=== PATIENT | male | born 1990 | race Caucasian/White ===

== ENCOUNTER 2018-06-02 23:36 | Emergency (ER) | payer SELFPAY ==
[~2018-06-02] VITALS: Ht 177.8 cm; Wt 65.8 kg
[2018-06-02 23:40] VITALS: BP 146/83
--- NOTE | 2018-06-02 23:57 | PHYS DOC ---
Past Medical History Past Medical History: No Pertinent History Past Surgical History: Other Additional Past Surgical Histo: HERNIA Alcohol Use: Sober Drug Use: Marijuana Adult General Chief Complaint Chief Complaint: CHEST PAIN HPI HPI Patient is a 28 year old male with history of smoking, bronchitis, who presents today complaining of a 10 out of 10 left-sided chest pain that has been going on for 1-1/2 months. Patient states he does not have any pain right now and the ED. Patient states the pain is worse when he coughs and takes deep breaths. Patient denies any pain radiating, denies anything specifically relieving the pain. He states he just wants to be checked out to make sure everything is okay. He states he has had similar chest pain when he had bronchitis. Review of Systems Review of Systems Constitutional: Denies fever or chills [] Eyes: Denies change in visual acuity, redness, or eye pain [] HENT: Denies nasal congestion or sore throat [] Respiratory: Denies cough or shortness of breath [] Cardiovascular: Reports chest pain GI: Denies abdominal pain, nausea, vomiting, bloody stools or diarrhea [] : Denies dysuria or hematuria [] Musculoskeletal: Denies back pain or joint pain [] Integument: Denies rash or skin lesions [] Neurologic: Denies headache, focal weakness or sensory changes [] All other systems were reviewed and found to be within normal limits, except as documented in this note. Current Medications Current Medications Current Medications Medications (Trade) Dose Ordered Sig/Temo Start Time Stop Time Status Last Admin Dose Admin Potassium Chloride (Klor-Con) 40 meq 1X ONCE 06/03/18 00:30 06/03/18 00:31 DC Allergies Allergies Allergies Coded Allergies Type Severity Reaction Last Updated Verified No Known Drug Allergies 04/05/14 No Physical Exam Physical Exam Constitutional: Well developed, well nourished, no acute distress, non-toxic appearance. [] HENT: Normocephalic, atraumatic, bilateral external ears normal, oropharynx moist, no oral exudates, nose normal. [] Eyes: PERRLA, EOMI, conjunctiva normal, no discharge. [] Neck: Normal range of motion, no tenderness, supple, no stridor. [] Cardiovascular:Heart rate regular rhythm, no murmur [] Lungs & Thorax: Bilateral breath sounds clear to auscultation [] Abdomen: Bowel sounds normal, soft, no tenderness, no masses, no pulsatile masses. [] Skin: Warm, dry, no erythema, no rash. [] Back: No tenderness, no CVA tenderness. [] Extremities: No tenderness, no cyanosis, no clubbing, ROM intact, no edema. [] Neurologic: Alert and oriented X 3, normal motor function, normal sensory function, no focal deficits noted. [] Psychologic: Affect normal, judgement normal, mood normal. [] Current Patient Data Vital Signs Vital Signs Date Time Temp Pulse Resp B/P (MAP) Pulse Ox O2 Delivery O2 Flow Rate FiO2 06/02/18 23:40 98.5 86 24 146/83 (104) 100 Room Air 98.5 Lab Values Laboratory Tests Test 06/03/18 00:02 06/03/18 00:05 POC Troponin I 0.00 ng/ml (<0.08) POC Hemoglobin 16.7 g/dL (14-18) POC Hematocrit 49 % (37-52) POC Sodium 142 mmol/L (135-145) POC Potassium 3.2 mmol/L (3.5-5.0) L POC Chloride 102 mmol/L (98-110) POC Total CO2 27 mmol/L (23-32) Anion Gap 17 mmol/L (6-14) H POC Blood Urea Nitrogen 11 mg/dL (8-26) POC Creatinine 0.9 mg/dL (0.5-1.4) Glucose Level 96 mg/dL (70-99) POC Ionized Calcium (Johanny) 1.16 mmol/L (1.13-1.32) Laboratory Tests 06/03/18 00:05 EKG EKG [address] Lee sinus rate them heart rate 96 no STEMI[] Radiology/Procedures Radiology/Procedures [] Course & Med Decision Making Course & Med Decision Making Pertinent Labs and Imaging studies reviewed. (See chart for details) This is a 28-year-old male patient presenting to the ED today complaining of chest pain when he coughs or takes a deep breath for the last 1-1/2 months. Patient states he does not have any pain on arrival to the ED. Patient has history of bronchitis and has had similar symptoms with his bronchitis. He is a smoker. He was encouraged to consider smoking cessation. EKG is negative for any acute findings, i-STAT troponin 0.00, chem 8 with potassium of 3.2, patient was given oral potassium replacement with advise to increase dietary potassium intake. He is in no distress. He was discharged with albuterol inhaler, prednisone. OTC cough medications recommended as needed. OTC pain medications also recommended. Provided a doctor's list as well as junior accountant for follow- up as an outpatient. Dragon Disclaimer Dragon Disclaimer This electronic medical record was generated, in whole or in part, using a voice recognition dictation system. Departure Departure Impression: Primary Impression: Acute bronchitis Additional Impression: Smoking addiction Disposition: HOME, SELF-CARE Condition: STABLE Referrals: NO PCP (PCP) FELIPE KELLEY MD follow up in 1 week Patient Instructions: Acute Bronchitis, Chest Pain (Nonspecific), [id number] , Smoking Cessation Additional Instructions: You were evaluated in the emergency room for acute bronchitis with chest pain. Please follow-up with the provided junior accountant as well as a primary care doctor from the list provided. Take [id number] medications as needed for pain. Use the prescribed medications as ordered. Come back to the ED at any point symptoms worsen. Consider smoking cessation. Scripts Prednisone (PREDNISONE) 50 Mg Tablet 1 TAB PO DAILY, #5 TAB Prov: ELLEN JOSÉ APRN 06/03/18 Albuterol Sulfate (VENTOLIN HFA INHALER) 18 Gm Hfa.aer.ad 2 PUFF INH Q4HRS for FOR ASTHMA, #1 INHALER 0 Refills Prov: ELLEN JOSÉ APRN 06/03/18 Problem Qualifiers Primary Impression: Acute bronchitis Bronchitis organism: unspecified organism Qualified Codes: J20.9 - Acute bronchitis, unspecified ELLEN JOSÉ APRN Jun 02, 2018 23:57
[2018-06-03 00:22] LABS: CREATININE ISTAT 0.9 mg/dL (0.5-1.4); HEMOGLOBIN ISTAT 16.7 g/dL (14-18); ION CA ISTAT 1.16 mmol/L (1.13-1.32); POTASSIUM ISTAT 3.2 mmol/L (3.5-5.0)
[2018-06-03] MEDS ORDERED: POTASSIUM CHLORIDE 20 MEQ TABLET.ER. PO ONE (00:30)
[2018-06-03] MEDS ORDERED: PRED50TA PO (00:48)
[2018-06-03] MEDS ORDERED: VENTOLIN HFA18 GM INH (00:48)
--- NOTE | 2018-06-03 01:29 | RAD ---
PA and lateral chest x-ray HISTORY: Chest pain and cough. FINDINGS: Heart size normal. Mediastinal silhouette is normal. Small calcified granulomas of the lungs. Pectus carinatum likely contributes to artificial density along the right medial lung base on the frontal view with no correlate on the lateral view. IMPRESSION: No acute process. 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 Electronically signed by: Scar Cheung MD (06/03/2018 1:24 AM) [facility]
--- NOTE | 2018-06-03 06:02 | EKG ---
[facility] [address] [place] [address] Test Date: 2018-06-02 Test Time: 23:45:52 Pat Name: KRYSTAL DIETRICH Department: Room: Gender: M [employer]: : 1990 Requested By: ELLEN JOSÉ Order Number: [id number] Reading MD: Measurements Intervals [place] Rate: 96 P: 99 AK: 138 QRS: 64 QRSD: 92 T: 61 QT: 346 QTc: 437 Interpretive Statements SINUS RHYTHM NORMAL ECG No previous ECG available for comparison
== END 2018-06-03 01:12 | disposition home or self-care (01) ==
LOC: ER 23:36
DX: J20.9 Acute bronchitis, unspecified (principal); Z87.891 Personal history of nicotine dependence
CPT/HCPCS: 36415; 71046; 80047; 84484; 85014; 85018; 93005; 99283

== ENCOUNTER 2021-08-13 21:23 | Emergency (ER) | payer SELFPAY ==
[~2021-08-13] VITALS: Ht 177.8 cm; Wt 63.6 kg
[~2021-08-13 21:23] MED LIST: PRED50TA PO; VENTOLIN HFA18 GM INH
[2021-08-14 00:04] VITALS: BP 148/106
[2021-08-14 00:23] LABS: BASO # 0.1 x10^3/uL (0.0-0.2); BASO % 1 % (0-3); EOS # 0.4 x10^3/uL (0.0-0.7); EOS % 4 % (0-3); HEMATOCRIT 44.5 % (39.0-53.0); HEMOGLOBIN 15.2 g/dL (13.0-17.5); LYMPH # 2.9 x10^3/uL (1.0-4.8); LYMPH % 28 % (24-48); MEAN CORPUSCULAR HEMOGLOBIN 29 pg (25-35); MEAN CORPUSCULAR HGB CONC 34 g/dL (31-37); MEAN CORPUSCULAR VOLUME 86 fL (79-100); MONO # 0.8 x10^3/uL (0.0-1.1); MONO % 8 % (0-9); NEUT # 5.9 x10^3/uL (1.8-7.7); NEUT % 58 % (31-73); PLATELET COUNT 267 x10^3/uL (140-400); RED BLOOD COUNT 5.15 x10^6/uL (4.30-5.70); RED CELL DISTRIBUTION WIDTH 14.4 % (11.5-14.5); WHITE BLOOD COUNT 10.2 x10^3/uL (4.0-11.0)
[2021-08-14 00:33] LABS: CALCIUM 9.3 mg/dL (8.5-10.1); CREATININE 0.8 mg/dL (0.7-1.3); GFR 111.3; POTASSIUM 3.8 mmol/L (3.5-5.1)
[2021-08-14 00:39] LABS: ALBUMIN 4.3 g/dL (3.4-5.0); TOTAL PROTEIN 8.4 g/dL (6.4-8.2)
[2021-08-14] MEDS ORDERED: CONTRAST GIVEN. MC PRN (00:45)
[2021-08-14] MEDS ORDERED: IOHEXOL 300 MG/ML 100ML VIAL. IV ONE (01:00)
--- NOTE | 2021-08-14 01:02 | PHYS DOC ---
Past Medical History Past Medical History: No Pertinent History Past Surgical History: No Surgical History Additional Past Surgical Histo: Childhood ingunal hernia repair Smoking Status: Current Every Day Smoker Alcohol Use: None Drug Use: Marijuana General Adult EDM: Chief Complaint: ABSCESS HPI: HPI: Patient is a 31 year old male who presents the ED today complaining of an abscess in the inside of his mouth specifically at the back of the tongue/gum on the left side, patient states it has been there for 4 months. Denies any fever, denies any difficulty swallowing. Patient is a smoker. Review of Systems: Review of Systems: Constitutional: Denies fever or chills. [] HENT: Reports an abscess on the left side of his tongue/gums Denies nasal congestion or sore throat. [] Respiratory: denies cough or shortness of breath. [] Cardiovascular: Denies chest pain or edema. [] GI: Denies abdominal pain, nausea, vomiting, bloody stools or diarrhea. [] : Denies dysuria. [] Musculoskeletal: Denies back pain or joint pain. [] Integument: Denies rash. [] Neurologic: Denies headache, focal weakness or sensory changes. [] Psychiatric: Denies depression or anxiety. [] Heart Score: C/O Chest Pain: N/A Risk Factors: Risk Factors: DM, Current or recent (<one month) smoker, HTN, HLP, family history of CAD, obesity. Risk Scores: Score 0 - 3: 2.5% MACE over next 6 weeks - Discharge Home Score 4 - 6: 20.3% MACE over next 6 weeks - Admit for Clinical Observation Score 7 - 10: 72.7% MACE over next 6 weeks - Early Invasive Strategies Current Medications: Current Medications Medications (Trade) Dose Ordered Sig/Temo Start Time Stop Time Status Last Admin Dose Admin Info (CONTRAST GIVEN -- Rx MONITORING) 1 each PRN DAILY PRN 08/14/21 00:45 08/16/21 00:44 Iohexol (Omnipaque 300 Mg/ml) 70 ml 1X ONCE 08/14/21 01:00 08/14/21 01:01 Allergies: Allergies: Allergies Coded Allergies Type Severity Reaction Last Updated Verified No Known Drug Allergies 04/05/14 No Physical Exam: PE: Constitutional: Well developed, well nourished, no acute distress, non-toxic appearance. [] HENT: Normocephalic, atraumatic, bilateral external ears normal, oropharynx moist, nose normal. [] Airway is open, no obvious abscess noted on the tongue, decayed teeth noted on the left lower gum, with some gum swelling on the left side. Subcutaneous swelling noted on the left lateral neck, no fluctuance Eyes: PERRLA, EOMI, conjunctiva normal, no discharge. [] Neck: Normal range of motion, no tenderness, supple, no stridor. [] Cardiovascular:Heart rate regular rhythm, no murmur [] Lungs & Thorax: Bilateral breath sounds clear to auscultation [] Abdomen: Bowel sounds normal, soft, no tenderness, no masses, no pulsatile m asses. [] Skin: Warm, dry, no erythema, no rash. [] Back: No tenderness, no CVA tenderness. [] Extremities: No tenderness, no cyanosis, no clubbing, ROM intact, no edema. [] Neurologic: Alert and oriented X 3, normal motor function, normal sensory function, no focal deficits noted. [] Psychologic: Affect normal, judgement normal, mood normal. [] Current Patient Data: Labs: Laboratory Tests Test 08/14/21 00:16 White Blood Count 10.2 x10^3/uL (4.0-11.0) Red Blood Count 5.15 x10^6/uL (4.30-5.70) Hemoglobin 15.2 g/dL (13.0-17.5) Hematocrit 44.5 % (39.0-53.0) Mean Corpuscular Volume 86 fL (79-100) Mean Corpuscular Hemoglobin 29 pg (25-35) Mean Corpuscular Hemoglobin Concent 34 g/dL (31-37) Red Cell Distribution Width 14.4 % (11.5-14.5) Platelet Count 267 x10^3/uL (140-400) Neutrophils (%) (Auto) 58 % (31-73) Lymphocytes (%) (Auto) 28 % (24-48) Monocytes (%) (Auto) 8 % (0-9) Eosinophils (%) (Auto) 4 % (0-3) H Basophils (%) (Auto) 1 % (0-3) Neutrophils # (Auto) 5.9 x10^3/uL (1.8-7.7) Lymphocytes # (Auto) 2.9 x10^3/uL (1.0-4.8) Monocytes # (Auto) 0.8 x10^3/uL (0.0-1.1) Eosinophils # (Auto) 0.4 x10^3/uL (0.0-0.7) Basophils # (Auto) 0.1 x10^3/uL (0.0-0.2) Sodium Level 140 mmol/L (136-145) Potassium Level 3.8 mmol/L (3.5-5.1) Chloride Level 103 mmol/L (98-107) Carbon Dioxide Level 28 mmol/L (21-32) Anion Gap 9 (6-14) Blood Urea Nitrogen 19 mg/dL (8-26) Creatinine 0.8 mg/dL (0.7-1.3) Estimated GFR (Cockcroft-Gault) 111.3 BUN/Creatinine Ratio 24 (6-20) H Glucose Level 97 mg/dL (70-99) Calcium Level 9.3 mg/dL (8.5-10.1) Total Bilirubin 1.0 mg/dL (0.2-1.0) Aspartate Amino Transferase (AST) 36 U/L (15-37) Alanine Aminotransferase (ALT) 95 U/L (16-63) H Alkaline Phosphatase 90 U/L (46-116) Total Protein 8.4 g/dL (6.4-8.2) H Albumin 4.3 g/dL (3.4-5.0) Albumin/Globulin Ratio 1.0 (1.0-1.7) Laboratory Tests 08/14/21 00:16 Laboratory Tests 08/14/21 00:16 Vital Signs: Vital Signs Date Time Temp Pulse Resp B/P (MAP) Pulse Ox O2 Delivery O2 Flow Rate FiO2 08/14/21 00:04 98.0 80 21 148/106 (120) 97 Room Air 98.0 EKG: EKG: [] Radiology/Procedures: Radiology/Procedures: []PROCEDURE: CT SOFT TISSUE NECK W/CONTRAST CLINICAL HISTORY: Reason: left side of throat swelling;OMNI 300,70ML / Spl. Instructions: / History: COMPARISON: None available. TECHNIQUE: Multidetector helical CT with axial 3 mm scans and coronal and sagittal reconstructed images was obtained from the skull base to the aortic arch after administration of IV contrast. PQRS compliance statement - One or more of the following individualized dose reduction techniques were utilized for this study: 1. Automated exposure control 2. Adjustment of the mA and/or kV according to patient size 3. Use of iterative reconstruction technique FINDINGS: Images through the skull base and cavernous sinuses are unremarkable. The orbits are unremarkable. The paranasal sinuses and mastoid air cells are unremarkable. The nasopharynx, oral pharynx and oral cavity including the floor of the mouth and tongue are unremarkable. The hypopharynx including the epiglottis, vallecula and pyriform sinuses are unremarkable. The larynx, vocal cords and subglottic airways are unremarkable/patent. The parotid and submandibular glands are unremarkable. The thyroid gland is unremarkable. The carotid arteries and jugular veins are patent. There is no evidence of pathologically enlarged lymph nodes. The osseous structures are unremarkable. Mild subcutaneous swelling overlying the left neck. Biapical emphysematous changes are seen. IMPRESSION: Mild subcutaneous swelling overlying the left neck. No loculated fluid collection at the neck. Electronically signed by: Edis Esteves MD (08/14/2021 1:09 AM) [facility] DICTATED and SIGNED BY: EDIS ESTEVES MD DATE: 08/14/21 0104 Course & Med Decision Making: Course & Med Decision Making Pertinent Labs and Imaging studies reviewed. (See chart for details) This a 31-year-old male patient presenting to the ED today complaining of an abscess on the left side of his gums/tongue for 4 months. CBC CMP with no acute findings, CT neck soft tissue mild subcutaneous swelling overlying the left neck. No loculated fluid collection at the neck. Discharge to home. Provided ENT to follow-up for this. Dragon Disclaimer: Raj Disclaimer: This electronic medical record was generated, in whole or in part, using a voice recognition dictation system. Departure Departure Impression: Primary Impression: Smoking addiction Additional Impression: Swollen neck Disposition: 01 HOME / SELF CARE / HOMELESS Condition: STABLE Referrals: NO PCP (PCP) SADIA PENN MD follow up in 2 weeks a week ago with Patient Instructions: Smoking Cessation, Tips For Success Additional Instructions: You were evaluated in the emergency room and noted to have some swelling on the left side of the neck. We provided you an ENT, to follow-up for this ELLEN JOSÉ APRN Aug 14, 2021 01:02
--- NOTE | 2021-08-14 01:11 | RAD ---
CLINICAL HISTORY: Reason: left side of throat swelling;OMNI 300,70ML / Spl. Instructions: / History: COMPARISON: None available. TECHNIQUE: Multidetector helical CT with axial 3 mm scans and coronal and sagittal reconstructed imag es was obtained from the skull base to the aortic arch after administration of IV contrast. PQRS compliance statement - One or more of the following individualized dose reduction techniques wer e utilized for this study: 1. Automated exposure control 2. Adjustment of the mA and/or kV according to patient size 3. Use of iterative reconstruction technique FINDINGS: Images through the skull base and cavernous sinuses are unremarkable. The orbits are unremarkable. Th e paranasal sinuses and mastoid air cells are unremarkable. The nasopharynx, oral pharynx and oral cavity including the floor of the mouth and tongue are unrema rkable. The hypopharynx including the epiglottis, vallecula and pyriform sinuses are unremarkable. The larynx, vocal cords and subglottic airways are unremarkable/patent. The parotid and submandibular glands are unremarkable. The thyroid gland is unremarkable. The carotid arteries and jugular veins are patent. There is no evidence of pathologically enlarged lymph nodes. The osseous structures are unremarkable. Mild subcutaneous swelling overlying the left neck. Biapical emphysematous changes are seen. IMPRESSION: Mild subcutaneous swelling overlying the left neck. No loculated fluid collection at the neck. Electronically signed by: Edis Esteves MD (08/14/2021 1:09 AM) [facility]
== END 2021-08-14 01:43 | disposition home or self-care (01) ==
LOC: ER 21:23
DX: R22.1 Localized swelling, mass and lump, neck (principal); F17.200 Nicotine dependence, unspecified, uncomplicated
CPT/HCPCS: 36415; 70491; 80053; 85025; 87070; 87147; 87880; 99285-25